=== PATIENT | female | born 1965 | race American Indian/Alaskan Native ===

== ENCOUNTER 2021-01-20 15:00 | Emergency (ER) | payer OTHER ==
[~2021-01-20] VITALS: Ht 144.8 cm; Wt 45.6 kg
[~2021-01-20 15:00] MED LIST: ADVIL200 M1 PO; CRUTCH1 EACH; HYDROCODON-ACE1 EA10 PO; KEFLEX500 MG PO; LEVAQUIN750 MG PO; NORCO 5-325 TA1 EACH PO; PERCOCET 5-3251 EACH PO
--- NOTE | 2021-01-21 15:50 | EKG ---
[facility] [address] [place], [place] [address] Signed Normal sinus rhythm Normal ECG No previous ECGs available Confirmed by CAMILA PATEL DO ([id number]) on 01/21/2021 3:50:25 PM Electronically Signed By: CAMILA PATEL DO 01/21/21 1550 PATIENT NAME: MARNIE SUAREZ Electrocardiogram DATE OF : 61 PHYSICIAN: CAMILA PATEL DO REPORT #: [id number] REPORT IS CONFIDENTIAL AND NOT TO BE RELEASED WITHOUT AUTHORIZATION
== END 2021-01-20 17:09 | disposition home or self-care (01) ==
LOC: ED 15:00
DX: R20.2 Paresthesia of skin (principal)
CPT/HCPCS: 70450; 71045; 80053; 84484; 85025; 93005; 93010; 99284-25

== ENCOUNTER 2021-10-08 06:32 | Emergency (ER) | payer MEDICARE, OTHER ==
[~2021-10-08] VITALS: Ht 144.8 cm; Wt 45.4 kg
[2021-10-08] MEDS ORDERED: HYDROCODON-ACE1 EA10 PO (09:08)
== END 2021-10-08 09:32 | disposition home or self-care (01) ==
LOC: ED 06:32
DX: S09.90XA Unspecified injury of head, initial encounter (principal); S13.9XXA Sprain of joints and ligaments of unspecified parts of neck, initial encounter; Z90.49 Acquired absence of other specified parts of digestive tract; Z91.018 Allergy to other foods; Y04.0XXA Assault by unarmed brawl or fight, initial encounter
CPT/HCPCS: 70450; 72125; 96374; 96375; 99284-25; A9270; J2405; J3010

== ENCOUNTER 2025-05-27 02:40 | Emergency (ER) | payer MEDICARE, OTHER ==
[~2025-05-27] VITALS: Ht 144.8 cm; Wt 55.0 kg
[2025-05-27 04:05] VITALS: BP 128/74
== END 2025-05-27 04:05 | disposition home or self-care (01) ==
LOC: ED 02:40
DX: S80.861A Insect bite (nonvenomous), right lower leg, initial encounter (principal); W57.XXXA Bitten or stung by nonvenomous insect and other nonvenomous arthropods, initial encounter; Z91.018 Allergy to other foods
CPT/HCPCS: 99282; Q0163